=== PATIENT | male | born 1995 | race Caucasian/White ===

== ENCOUNTER 2018-03-16 16:55 | Emergency (ER) | payer OTHER ==
--- NOTE | 2018-03-16 17:14 | EDPHY ---
General Time Seen by Provider: 03/16/18 17:03 Narrative: CLINICAL IMPRESSION: Left Thumb Pain ASSESSMENT/PLAN: 22-year-old male presents to the emergency department with left thumb pain after he was hit on the thumb by a chairlift at [employer] where he works. Patient has no hyper extension, full range of motion and no clinical signs to suggest ulnar collateral ligament tear. X-rays negative for acute bony abnormality in fracture. He does have tenderness over the scaphoid and was placed in a thumb spica splint pending repeat x-ray and orthopedic evaluation. Neurovascular exam intact, no open wounds. No other injuries. Ortho referral given. Rice treatment discussed, warning signs return to ED sooner outlined in discharge. DIFFERENTIAL DX: Differential includes but not limited to acute fracture, strain/sprain, joint dislocation, soft tissue contusion ED PROCEDURES: Procedure: Splint placement. A left thumb spica splint was applied to left thumb by trim technician, supervised by myself. After application of the splint I returned and re-examined the patient. The splint was adequately immobilizing the joint and distal to the splint the patient's circulation and sensation was intact. ED COURSE: X-rays ordered, plan for thumb spica splint and orthopedic follow-up 6:00 P.M. preliminary review of x-ray show no evidence of acute fracture dislocation. CHIEF COMPLAINT: Left thumb pain HPI: 22-year-old male presents to the emergency department with left thumb pain. Patient reports he was grabbing a chair left, accidentally grabbed forcefully with his thumb and believes he re-injured an old injury. He reports injuring his thumb a year ago but never had surgery nor did he have orthopedic follow-up or x-ray. He is reporting pain at the base of the thumb and along the radial aspect of the wrist. No reported numbness or tingling to the thumb. No finger pain. No open wounds. 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 Neurological: No sensory loss or weakness. PHYSICAL EXAM: General Appearance: Alert, oriented, appropriate for age, cooperative, NAD, well hydrated, non-toxic appearing, VSS, no hypoxia. Neurological: Alert and oriented x 3, normal sensation and strength of extremities Skin: Warm, dry, no rashes, no nodules on palpation. Musculoskeletal: No significant hyperextension of the left thumb. Able to rotate 360 degrees. Low suspicion for ulnar collateral ligament injury. Reproducible pain to palpation of the left scaphoid. MEDICAL DECISION MAKING: Patient was seen independently. Secondary supervising physician at time of evaluation was Dr. Milton. Diagnosis: Left thumb strain . New, requires workup Summary: See assessment and plan for summary of ED visit Independent visualization of images, tracing, or specimens yes. Patient Progress: Improved. - Diagnostics Imaging Results: Imaging Impressions Wrist X-Ray 03/16/18 17:10 Impression: No evidence for acute fracture. - History Smoking Status: Never smoked - Objective Vital Signs: Initial Vital Signs Temperature (C) 36.6 C 03/16/18 16:55 Heart Rate 92 03/16/18 16:55 Respiratory Rate 16 03/16/18 16:55 Blood Pressure 116/60 03/16/18 16:55 O2 Sat (%) 96 03/16/18 16:55 O2 Delivery Mode Room Air Allergies/Adverse Reactions: Penicillins Allergy (Verified 03/16/18 16:59) Home Medications: Medication Instructions Recorded NK [No Known Home Meds] 03/16/18 Departure - Departure Disposition: Home, Routine, Self-Care Clinical Impression: Pain of left thumb Condition: Good Instructions: Finger Sprain (ED) Additional Instructions: DISCHARGE INSTRUCTIONS FROM YOUR DOCTOR Thank you for visiting our emergency department today. Please keep in mind that discharge from the emergency department does not mean that there is nothing wrong - it simply means that we have not identified an emergency condition that requires further evaluation or treatment in the hospital. You should always plan to follow up with primary care for re-evaluation of your condition in the next 2-3 days. If you have been referred to a specialist, please call as soon as possible (today or tomorrow) to schedule your follow up appointment at the appropriate time. X-RAYS OF THE WRIST SHOW NO OBVIOUS FRACTURE, DISLOCATION OR BONY ABNORMALITY. WE HAVE PLACED IN A THUMB SPICA SPLINT. I PROVIDED AN ORTHOPEDIC REFERRAL. REST AND ELEVATE THE AFFECTED EXTREMITY MUCH POSSIBLE. ICE THE AFFECTED AREAS 20 MIN ON, 20 MIN OFF FOR THE NEXT SEVERAL DAYS. PLEASE USE TYLENOL OR IBUPROFEN OVER THE COUNTER IN APPROPRIATE DOSES OUTLINED ON YOUR DISCHARGE PAPERS. TAKE IBUPROFEN WITH FOOD AND A LARGE GLASS OF WATER. RETURN TO THE EMERGENCY DEPARTMENT FOR INCREASED PAIN, SWELLING, LOSS OF SENSATION TO HAND OR FINGERS, FEVERS OR ANY OTHER CONCERNS. IF PAIN PERSISTS, PLEASE CONSIDER AN ORTHOPEDIC FOLLOW-UP People present with illnesses and injuries in different ways, and it is always possible that we have missed something. You may always return for re-evaluation if symptoms worsen or if they are not improving or if you develop new/different symptoms. Again, thank you for choosing our emergency department. We hope that you feel better. Referrals: NONE *PRIMARY CARE P,. [Primary Care Provider] - As per Instructions [place] Rae MD [Medical Doctor] - 3-4 days, if not improved
[2018-03-16] MEDS ORDERED: IBUPROFEN 800 MG TAB PO ONE (17:49)
[2018-03-16 18:21] VITALS: BP 125/74
== END 2018-03-16 18:20 | disposition home or self-care (01) ==
DX: M79.645 Pain in left finger(s) (principal)
CPT/HCPCS: L3807